=== PATIENT | female | born 1975 | race African-American/Black ===

== ENCOUNTER → 2016-10-17 | Outpatient (CLI) | payer OTHER ==
[~2016-10-17] MED LIST: CONRAY-43 43% 50ML VIAL (Q9960) As Ordered ONE; LIDOCAINE 1% MDV 20ML VIAL As Ordered ONE; TRIAMCINOLONE ACETONIDE SUSP 40 MG/ML VIAL (J3301) As Ordered ONE
--- NOTE | 2016-10-22 08:29 | REP ---
Right hip injection The procedure was performed under the direct supervision of Dr. Magallon. The benefits and risks including but not limited to pain infection and bleeding and anaphylaxis were explained to the patient and informed consent was obtained. The right femoral neck was localized using fluoroscopic guidance. The skin was prepped and draped in a sterile fashion. 1% lidocaine was used as a local anesthetic. Using fluoroscopic guidance a 22-gauge spinal needle was inserted and advanced to the femoral neck. 0.5 ml of Conray 43 was injected to verify placement. 10 ml of a solution containing 9 ml of 1% Xylocaine and 1 ml of Kenalog 40 mg was injected. The needle was then removed. The patient tolerated the procedure well and there were no immediate complications. 1 second of fluoro time was utilized for this procedure. Reviewed by LOCO Reddy 10/18/2016 03:39 PSigned by Misael Magallon MD 10/22/2016 08:21 A
== END ==
LOC: M RADPRO 09:02
PROVIDERS: ATTEND Orthopaedic Surgery
DX: M16.11 Unilateral primary osteoarthritis, right hip (principal)
CPT/HCPCS: 20610; 77002; J3301; Q9960

== ENCOUNTER → 2017-11-26 | Outpatient (CLI) | payer OTHER | LOC: M RAD 08:06 | DX: Z12.31 Encounter for screening mammogram for malignant neoplasm of breast (principal); Z92.89 Personal history of other medical treatment | CPT/HCPCS: 77067 ==

== ENCOUNTER → 2017-12-05 | Outpatient (CLI) | payer OTHER ==
[~2017-12-05] MED LIST changes: +CONRAY-43 43% 50ML VIAL (Q9960) As Ordered; -CONRAY-43 43% 50ML VIAL (Q9960) As Ordered ONE; -LIDOCAINE 1% MDV 20ML VIAL As Ordered ONE; +PROHANCE 279.3MG/ML 5ML VIAL (A9576) As Ordered; -TRIAMCINOLONE ACETONIDE SUSP 40 MG/ML VIAL (J3301) As Ordered ONE
== END ==
LOC: M RADPRO 06:05
DX: M25.551 Pain in right hip (principal); M24.151 Other articular cartilage disorders, right hip
CPT/HCPCS: 27093

== ENCOUNTER → 2018-03-12 | Outpatient (CLI) | payer OTHER | LOC: M RAD 08:45 | PROVIDERS: ATTEND Family Medicine | DX: M25.512 Pain in left shoulder (principal) ==

== ENCOUNTER → 2018-03-31 | Outpatient (CLI) | payer OTHER ==
[~2018-03-31] MED LIST changes: -CONRAY-43 43% 50ML VIAL (Q9960) As Ordered; +CONRAY-43 43% 50ML VIAL (Q9960) As Ordered ONE; -PROHANCE 279.3MG/ML 5ML VIAL (A9576) As Ordered; +PROHANCE 279.3MG/ML 5ML VIAL (A9576) As Ordered ONE
--- NOTE | 2018-03-31 10:32 | REP ---
MR ARTHROGRAM LEFT SHOULDER: TECHNIQUE: Axial T2 fat sat, coronal oblique T1, T2 fat sat, post arthrogram axial T1 fat sat, proton density, coronal oblique T1 fat sat, T2 sat, sagittal oblique T2 fat sat, ABER T1 fat sat. There is mild ill-defined high signal on T2-weighted images involving the supraspinatus tendon having the appearance of mild tendinopathy/tendinitis. I do not see evidence of a rotator cuff tendon tear. There are mild hypertrophic degenerative changes of the acromioclavicular joint with mild spurring, and mild fluid in the joint. Acromion is type 2. Biceps tendon is within the bicipital groove. There is no Hill-Sachs deformity. The deltoid muscle demonstrates no abnormal signal. There is a SLAP tear undermining the biceps labral complex and there appears to be extension into the superior aspect of the anterior labrum. A few tiny subchondral cysts are seen in the superolateral humeral head. There is fissuring of the cartilage of the anterior bony glenoid at the base of the anterior labrum with a small subchondral cyst inferiorly and anteriorly. There is a normal amount of joint fluid. IMPRESSION: Supraspinatus tendinopathy/tendinitis with no rotator cuff tear. Mild hypertrophic degenerative changes acromioclavicular joint with type 2 acromion. A SLAP tear is noted undermining the biceps labral complex, with probable extension into the superior aspect of the anterior labrum. There is fissuring of the cartilage of the anterior glenoid at the base of the anterior labrum with a small subchondral cyst in the anterior inferior bony glenoid. Electronically Signed by Mario Sky MD 03/31/2018 10:37 A
--- NOTE | 2018-04-01 10:43 | REP ---
Procedure: Left shoulder arthrogram The procedure was performed under the direct supervision of Dr. Sky. History: Left shoulder pain The benefits and risks including but not limited to pain, infection, bleeding and anaphylaxis were explained to the patient and informed consent was obtained. Technique: The left glenohumeral joint space was localized using fluoroscopic guidance. The skin was prepped and draped in a sterile fashion. 1% lidocaine was used as a local anesthetic. Using fluoroscopic guidance a 22 gauge spinal needle was inserted and advanced into the joint. 0.5 ml of Conray 43 was injected to verify placement. 11 ml of a solution containing 20 ml of sterile saline and 0.15 ml of ProHance was injected into the joint. The needle was removed and the patient was taken to MRI for postprocedural imaging. The the patient tolerated the procedure well and there were no immediate complications. Less than 6 seconds of fluoro time was utilized for this procedure. Reviewed by LOCO Reddy 03/31/2018 04:51 P Electronically Signed by Mario Sky MD 04/01/2018 10:35 A
== END ==
LOC: M RADPRO 06:31
PROVIDERS: ATTEND Family Medicine
DX: M75.82 Other shoulder lesions, left shoulder (principal); M25.512 Pain in left shoulder
CPT/HCPCS: 23350; 73223; 77002; A9576; Q9960

== ENCOUNTER → 2018-04-16 | Outpatient (REF) | payer OTHER ==
[2018-04-16 12:16] LABS: INR 0.98; PROTHROMBIN TIME 13.1 SECONDS (12.1-14.4)
[2018-04-16 12:17] LABS: PARTIAL THROMBOPLASTIN TIME 23.8 SECONDS (25.4-37.6)
[2018-04-16 12:28] LABS: HCG, SERUM QUALITATIVE NEGATIVE (NEGATIVE)
== END ==
LOC: M LABDRAW1 11:35
PROVIDERS: ATTEND Physical Medicine & Rehabilitation
DX: Z01.812 Encounter for preprocedural laboratory examination (principal)